=== PATIENT | female | born 1990 | race African-American/Black ===

== ENCOUNTER 2017-04-05 02:32 | Inpatient (IN) | payer MEDICAID, MEDICARE ==
[~2017-04-05] VITALS: Ht 177.8 cm; Wt 113.4 kg
[2017-04-05] VITALS: BP 106/55
[2017-04-05] MEDS ORDERED: SODIUM CHLORIDE 0.9% 1,000 ML IV ONE (06:20)
[2017-04-05] MEDS ORDERED: IPRATROPIUM/ALBUTEROL 0.5-3(2.5)MG/3ML NEB HHN ONE (06:30)
[2017-04-05 06:43] LABS: BASOPHILS % 0.8 % (0.0-2.0); EOSINOPHILS % 4.1 % (0.0-5.0); HEMATOCRIT. 35.4 % (36.0-48.0); HEMOGLOBIN. 12.3 g/dL (12.0-16.0); LYMPHOCYTES % 13.4 % (20.0-50.0); MEAN CORPUSCULAR VOLUME 86.6 fL (81.0-99.0); MEAN PLATELET VOLUME 7.2 fl (7.4-10.4); NEUTROPHILS % 74.7 % (40.0-76.0); PLATELET 221 x1000/uL (130-400); RED BLOOD CELL COUNT 4.09 mill/uL (4.2-5.4); RED CELL DISTRIBUTION WIDTH 13.1 % (11.6-14.6)
[2017-04-05 06:54] LABS: D-DIMER 1.02 mg/L FEU (<0.50); INR 0.9; PROTHROMBIN TIME 9.6 sec (9.4-11.6)
[2017-04-05 07:03] LABS: CARBON DIOXIDE 23 mEq/L (21-32); CHLORIDE 107 mEq/L (98-107); TROPONIN I < 0.02 ng/mL (0.00-0.04)
[2017-04-05] MEDS ORDERED: ENOXAPARIN 100MG/ML SYR SUBCUT ONE (08:15)
[2017-04-05 10:53] LABS: CLARITY URINE CLEAR (CLEAR); COLOR URINE YELLOW (YELLOW); GLUCOSE URINE NEGATIVE (NEGATIVE); KETONES URINE 2+ (NEGATIVE); LEUKOCYTE ESTERASE URINE NEGATIVE (NEGATIVE); NITRITE URINE NEGATIVE (NEGATIVE); OCCULT BLOOD URINE NEGATIVE (NEGATIVE); PH URINE 6.5 (4.5-8.0); PROTEIN URINE NEGATIVE (NEGATIVE); SPECIFIC GRAVITY URINE 1.017 (1.005-1.030); UROBILINOGEN URINE 0.2 E.U./dL (0.2-1.0)
[2017-04-05 11:23] LABS: *AMPHETAMINES SCREEN URINE NEGATIVE (NEGATIVE); *BARBITURATES SCREEN URINE NEGATIVE (NEGATIVE); *BENZODIAZEPINES SCREEN URINE NEGATIVE (NEGATIVE); *COCAINE SCREEN URINE NEGATIVE (NEGATIVE); CANNABINOID URINE SCREEN NEGATIVE (NEGATIVE); METHADONE URINE SCREEN NEGATIVE (NEGATIVE); OPIATES URINE SCREEN NEGATIVE (NEGATIVE); PHENCYCLIDINE URINE SCREEN NEGATIVE (NEGATIVE)
[2017-04-05] MEDS ORDERED: IPRATROPIUM/ALBUTEROL 0.5-3(2.5)MG/3ML NEB INH PRN (13:00)
[2017-04-05] MEDS ORDERED: ACETAMINOPHEN 325MG TABLET PO PRN (13:00)
[2017-04-05 15:44] VITALS: BP 101/64
[2017-04-05] MEDS ORDERED: DEXT 5%/0.45% NACL 1000ML 1,000 ML IV SCH (16:00)
[2017-04-05 20:00] VITALS: BP 151/87
[2017-04-05] MEDS ORDERED: ENOXAPARIN 120MG/0.8ML SYR SUBCUT SCH (21:00)
[2017-04-06] VITALS: BP 106/55
[2017-04-06] MEDS ORDERED: PRENATAL VIT/FE FUMARATE/FA TABLET PO SCH (09:00)
== END 2017-04-06 01:55 | disposition short-term general hospital (02) | DRG 566 ==
LOC: ER 02:32 → 5WST 08:52 → ENRESERV 13:13
PROVIDERS: ADMIT Internal Medicine; ATTEND Internal Medicine
DX: O22.33 Deep phlebothrombosis in pregnancy, third trimester (principal); I82.432 Acute embolism and thrombosis of left popliteal vein; E66.01 Morbid (severe) obesity due to excess calories; Z68.35 Body mass index [BMI] 35.0-35.9, adult; O99.213 Obesity complicating pregnancy, third trimester; Z3A.29 29 weeks gestation of pregnancy
CPT/HCPCS: 36415; 71010; 78580; 80053; 80305; 81003; 83690; 83880; 84484; 85025; 85379; 85610; 85730; 93005; 93970; 94640; 96372; 99285; J1650; J7030; J7620

== ENCOUNTER 2019-01-16 11:07 | Emergency (ER) | payer MEDICAID, MEDICARE ==
[~2019-01-16] VITALS: Ht 177.8 cm; Wt 118.0 kg
[2019-01-16] MEDS ORDERED: ACETAMINOPHEN 325MG TABLET PO ONE (11:30)
[2019-01-16 13:19] VITALS: BP 119/87
== END 2019-01-16 13:19 | disposition home or self-care (01) ==
LOC: ER 11:57
DX: O26.892 Other specified pregnancy related conditions, second trimester (principal); M25.562 Pain in left knee; Z3A.27 27 weeks gestation of pregnancy; Z86.718 Personal history of other venous thrombosis and embolism; Z79.01 Long term (current) use of anticoagulants; Z88.0 Allergy status to penicillin
CPT/HCPCS: 93971; 99284; Z7610

== ENCOUNTER 2019-01-20 23:36 | Emergency (ER) | payer MEDICARE ==
[~2019-01-20] VITALS: Ht 177.8 cm; Wt 98.0 kg
[2019-01-21] MEDS ORDERED: SODIUM CHLORIDE 0.9% 1,000 ML IV ONE (00:53)
[2019-01-21 01:23] LABS: BASOPHILS % 0.4 % (0.0-2.0); EOSINOPHILS % 3.4 % (0.0-5.0); HEMOGLOBIN. 11.9 g/dL (12.0-16.0); MEAN CORPUSCULAR HEMOGLOBIN 30.4 pg (28.0-32.0); MEAN CORPUSCULAR VOLUME 89.4 fL (81.0-99.0); MEAN PLATELET VOLUME 7.4 fl (7.4-10.4); MONOCYTES % 7.5 % (2.0-8.0); NEUTROPHILS % 71.7 % (40.0-76.0); PLATELET 202 x1000/uL (130-400); RED BLOOD CELL COUNT 3.91 mill/uL (4.2-5.4); RED CELL DISTRIBUTION WIDTH 13.5 % (11.6-14.6)
[2019-01-21 01:26] LABS: CHLORIDE 110 mEq/L (98-107)
[2019-01-21 01:32] LABS: D-DIMER 1.94 mg/L FEU (<0.50); INR 0.9; PARTIAL THROMBOPLASTIN TIME 25.8 sec (23.4-31.0); PROTHROMBIN TIME 9.6 sec (9.6-11.0)
[2019-01-21] MEDS ORDERED: ALBUTEROL (0.083%) 2.5MG/3ML NEB HHN STA (03:10)
[2019-01-21] MEDS ORDERED: IPRATROPIUM BROMIDE (0.02%) 0.5MG/2.5ML NEB HHN STA (03:10)
[2019-01-21 04:18] VITALS: BP 127/87
== END 2019-01-21 04:29 | disposition home or self-care (01) ==
LOC: ER 23:36
DX: O99.513 Diseases of the respiratory system complicating pregnancy, third trimester (principal); Z88.0 Allergy status to penicillin; Z3A.28 28 weeks gestation of pregnancy
CPT/HCPCS: 36415; 80053; 84702; 85025; 85379; 85610; 85730; 93005; 94640; 99284; J7030; J7611; Z7610

== ENCOUNTER 2019-03-05 01:27 | Emergency (ER) | payer MEDICARE ==
[~2019-03-05] VITALS: Ht 177.8 cm; Wt 126.4 kg
[2019-03-05] MEDS ORDERED: ACETAMINOPHEN 500MG TABLET PO ONE (03:45)
[2019-03-05 04:00] VITALS: BP 119/74
== END 2019-03-05 04:30 | disposition home or self-care (01) ==
LOC: ER 04:19
DX: O26.893 Other specified pregnancy related conditions, third trimester (principal); T81.49XA Infection following a procedure, other surgical site, initial encounter; Z3A.33 33 weeks gestation of pregnancy; Z98.890 Other specified postprocedural states; Z88.0 Allergy status to penicillin
CPT/HCPCS: 99283

== ENCOUNTER 2023-08-11 09:26 | Emergency (ER) | payer MEDICARE, OTHER ==
[~2023-08-11] VITALS: Ht 177.8 cm; Wt 117.9 kg
[2023-08-11 09:44] VITALS: BP 140/88; PULSE 90; RESP 16; TEMP 99; O2SAT 99
[2023-08-11 10:04] LABS: BASOPHILS % 0.8 % (0.0-2.0); EOSINOPHILS % 4.1 % (0.0-5.0); HEMATOCRIT. 40.3 % (36.0-48.0); LYMPHOCYTES % 40.9 % (20.0-50.0); MEAN CORPUSCULAR HEMOGLOBIN 27.4 pg (28.0-32.0); MEAN CORPUSCULAR HGB CONC 32.2 g/dL (31.0-37.0); MEAN CORPUSCULAR VOLUME 85.3 fL (81.0-99.0); MEAN PLATELET VOLUME 6.9 fl (7.4-10.4); MONOCYTES % 9.3 % (2.0-8.0); NEUTROPHILS % 44.9 % (40.0-76.0); PLATELET 312 x1000/uL (130-400); RED BLOOD CELL COUNT 4.72 mill/uL (4.2-5.4); RED CELL DISTRIBUTION WIDTH 14.9 % (11.6-14.6)
[2023-08-11 10:27] LABS: ALANINE AMINOTRANSFERASE 18 IU/L (10-49); ALBUMIN 4.2 g/dL (3.2-4.8); ASPARTATE AMINOTRANSFERASE 26 IU/L (<34); B-HCG QUANTITATIVE 498 mIU/mL (<3); BILIRUBIN TOTAL 0.3 mg/dL (0.1-1.0); CALCIUM 9.3 mg/dL (8.7-10.4); CARBON DIOXIDE 26 mEq/L (21-32); CHLORIDE 106 mEq/L (98-107); CREATININE 0.7 mg/dL (0.6-1.0); GLUCOSE 101 mg/dL (70-105); POTASSIUM 4.3 mEq/L (3.5-5.1); PROTEIN TOTAL 7.3 g/dL (6.0-8.3); SODIUM 136 mEq/L (136-145); UREA NITROGEN BLOOD 7 mg/dL (9-23)
[2023-08-11 13:02] LABS: CLARITY URINE CLEAR (CLEAR); COLOR URINE YELLOW (YELLOW); GLUCOSE URINE NEGATIVE (NEGATIVE); KETONES URINE NEGATIVE (NEGATIVE); LEUKOCYTE ESTERASE URINE NEGATIVE (NEGATIVE); NITRITE URINE NEGATIVE (NEGATIVE); OCCULT BLOOD URINE TRACE (NEGATIVE); PH URINE 7.5 (4.5-8.0); PROTEIN URINE NEGATIVE (NEGATIVE)
[2023-08-11 13:41] LABS: MUCUS URINE 2+ /lpf (< = 2+); SQUAMOUS EPITHELIAL CELL URINE 2+ /lpf (RARE/1+)
[2023-08-11 13:42] LABS: RBC URINE 0-2 /hpf (0-2); WBC URINE 0-2 /hpf (0-2)
[2023-08-11 13:43] LABS: BACTERIA URINE 1+
== END 2023-08-11 13:43 | disposition home or self-care (01) ==
LOC: ER 09:26
DX: O46.91 Antepartum hemorrhage, unspecified, first trimester (principal); Z3A.01 Less than 8 weeks gestation of pregnancy
CPT/HCPCS: 36415; 76801; 80053; 81003; 81025; 84702; 85025; 86850; 86900; 99284

== ENCOUNTER 2023-08-13 09:09 | Emergency (ER) | payer MEDICAID, OTHER ==
[~2023-08-13] VITALS: Ht 177.8 cm; Wt 118.0 kg
[2023-08-13 09:14] VITALS: O2SAT 98
[2023-08-13 10:18] LABS: BASOPHILS % 0.7 % (0.0-2.0); EOSINOPHILS % 2.3 % (0.0-5.0); HEMOGLOBIN. 13.7 g/dL (12.0-16.0); LYMPHOCYTES % 32.5 % (20.0-50.0); MEAN CORPUSCULAR HEMOGLOBIN 28.3 pg (28.0-32.0); MEAN CORPUSCULAR HGB CONC 33.4 g/dL (31.0-37.0); MEAN CORPUSCULAR VOLUME 84.7 fL (81.0-99.0); MONOCYTES % 7.4 % (2.0-8.0); NEUTROPHILS % 57.1 % (40.0-76.0); PLATELET 323 x1000/uL (130-400); RED BLOOD CELL COUNT 4.84 mill/uL (4.2-5.4); RED CELL DISTRIBUTION WIDTH 14.7 % (11.6-14.6)
[2023-08-13 10:33] LABS: ALANINE AMINOTRANSFERASE 24 IU/L (10-49); ALBUMIN 4.5 g/dL (3.2-4.8); ASPARTATE AMINOTRANSFERASE 34 IU/L (<34); B-HCG QUANTITATIVE 650 mIU/mL (<3); BILIRUBIN TOTAL 0.5 mg/dL (0.1-1.0); CALCIUM 9.4 mg/dL (8.7-10.4); CARBON DIOXIDE 24 mEq/L (21-32); CHLORIDE 105 mEq/L (98-107); CREATININE 0.7 mg/dL (0.6-1.0); GLUCOSE 89 mg/dL (70-105); POTASSIUM 3.8 mEq/L (3.5-5.1); SODIUM 136 mEq/L (136-145); UREA NITROGEN BLOOD 5 mg/dL (9-23)
[2023-08-13 12:23] VITALS: BP 138/86; PULSE 95; RESP 18; TEMP 98.2
== END 2023-08-13 12:24 | disposition home or self-care (01) ==
LOC: ER 09:09
DX: O46.91 Antepartum hemorrhage, unspecified, first trimester (principal); O26.891 Other specified pregnancy related conditions, first trimester; R10.2 Pelvic and perineal pain; Z3A.01 Less than 8 weeks gestation of pregnancy
CPT/HCPCS: 36415; 76830; 76856; 80053; 81025; 84702; 85025; 86850; 86900; 99284

== ENCOUNTER 2024-04-19 08:56 | Emergency (ER) | payer MEDICAID, OTHER ==
[~2024-04-19] VITALS: Ht 177.8 cm; Wt 100.0 kg
[2024-04-19 09:01] VITALS: O2SAT 100
[2024-04-19 09:35] LABS: CLARITY URINE CLEAR (CLEAR); COLOR URINE YELLOW (YELLOW); GLUCOSE URINE NEGATIVE (NEGATIVE); KETONES URINE NEGATIVE (NEGATIVE); LEUKOCYTE ESTERASE URINE TRACE (NEGATIVE); NITRITE URINE NEGATIVE (NEGATIVE); OCCULT BLOOD URINE NEGATIVE (NEGATIVE); PROTEIN URINE NEGATIVE (NEGATIVE); SPECIFIC GRAVITY URINE 1.014 (1.005-1.030); UROBILINOGEN URINE 0.2 E.U./dL (0.2-1.0)
[2024-04-19 09:50] LABS: BASOPHILS % 0.4 % (0.0-2.0); HEMATOCRIT. 39.1 % (36.0-48.0); HEMOGLOBIN. 12.9 g/dL (12.0-16.0); LYMPHOCYTES % 32.6 % (20.0-50.0); MEAN CORPUSCULAR VOLUME 84.6 fL (81.0-99.0); MEAN PLATELET VOLUME 7.1 fl (7.4-10.4); MONOCYTES % 7.7 % (2.0-8.0); NEUTROPHILS % 56.3 % (40.0-76.0); PLATELET 352 x1000/uL (130-400); RED BLOOD CELL COUNT 4.62 mill/uL (4.2-5.4); RED CELL DISTRIBUTION WIDTH 16.2 % (11.6-14.6); WHITE BLOOD COUNT 6.7 x1000/uL (4.5-11.0)
[2024-04-19 09:54] LABS: CHLORIDE 107 mEq/L (98-107); POTASSIUM 3.9 mEq/L (3.5-5.1); SODIUM 133 mEq/L (136-145)
[2024-04-19 09:55] LABS: CALCIUM 9.4 mg/dL (8.7-10.4); CARBON DIOXIDE 22 mEq/L (21-32)
[2024-04-19 10:00] LABS: CREATININE 0.7 mg/dL (0.6-1.0); GLUCOSE 111 mg/dL (70-105); UREA NITROGEN BLOOD 7 mg/dL (9-23)
[2024-04-19 10:09] LABS: SQUAMOUS EPITHELIAL CELL URINE 2+ /lpf (RARE/1+)
[2024-04-19 10:10] LABS: BACTERIA URINE 2+; RBC URINE 0-2 /hpf (0-2)
[2024-04-19 10:14] LABS: B-HCG QUANTITATIVE 2730 mIU/mL (<3)
[2024-04-19 11:17] VITALS: BP 121/79; PULSE 92; RESP 18; TEMP 36.78072; O2SAT 100
== END 2024-04-19 12:41 | disposition home or self-care (01) ==
LOC: ER 08:56
DX: O20.9 Hemorrhage in early pregnancy, unspecified (principal); Z98.890 Other specified postprocedural states; Z88.0 Allergy status to penicillin; Z3A.01 Less than 8 weeks gestation of pregnancy
CPT/HCPCS: 36415; 76801; 80048; 81003; 81025; 84702; 85025; 86850; 86900; 99284

== ENCOUNTER 2024-04-26 10:30 | Emergency (ER) | payer OTHER ==
[~2024-04-26] VITALS: Ht 177.8 cm; Wt 113.0 kg
[2024-04-26 10:39] VITALS: O2SAT 100
[2024-04-26 11:10] LABS: BASOPHILS % 0.6 % (0.0-2.0); EOSINOPHILS % 2.9 % (0.0-5.0); HEMATOCRIT. 38.4 % (36.0-48.0); HEMOGLOBIN. 12.8 g/dL (12.0-16.0); LYMPHOCYTES % 33.9 % (20.0-50.0); MEAN CORPUSCULAR HGB CONC 33.2 g/dL (31.0-37.0); MEAN CORPUSCULAR VOLUME 84.4 fL (81.0-99.0); MEAN PLATELET VOLUME 6.9 fl (7.4-10.4); MONOCYTES % 6.1 % (2.0-8.0); NEUTROPHILS % 56.5 % (40.0-76.0); PLATELET 339 x1000/uL (130-400); RED BLOOD CELL COUNT 4.55 mill/uL (4.2-5.4); RED CELL DISTRIBUTION WIDTH 16.4 % (11.6-14.6); WHITE BLOOD COUNT 7.2 x1000/uL (4.5-11.0)
[2024-04-26 11:23] LABS: CHLORIDE 107 mEq/L (98-107); POTASSIUM 3.7 mEq/L (3.5-5.1); SODIUM 136 mEq/L (136-145)
[2024-04-26 11:24] LABS: CARBON DIOXIDE 23 mEq/L (21-32)
[2024-04-26 11:25] LABS: CALCIUM 9.3 mg/dL (8.7-10.4)
[2024-04-26 11:29] LABS: CREATININE 0.7 mg/dL (0.6-1.0); GLUCOSE 122 mg/dL (70-105); UREA NITROGEN BLOOD 8 mg/dL (9-23)
[2024-04-26 11:47] LABS: B-HCG QUANTITATIVE 16551 mIU/mL (<3)
[2024-04-26 13:53] LABS: CLARITY URINE TURBID (CLEAR); COLOR URINE YELLOW (YELLOW); GLUCOSE URINE NEGATIVE (NEGATIVE); KETONES URINE NEGATIVE (NEGATIVE); LEUKOCYTE ESTERASE URINE NEGATIVE (NEGATIVE); NITRITE URINE NEGATIVE (NEGATIVE); OCCULT BLOOD URINE NEGATIVE (NEGATIVE); PROTEIN URINE NEGATIVE (NEGATIVE); SPECIFIC GRAVITY URINE 1.022 (1.005-1.030); UROBILINOGEN URINE 0.2 E.U./dL (0.2-1.0)
[2024-04-26 14:02] VITALS: BP 125/87; PULSE 81; RESP 16; TEMP 36.66960; O2SAT 100
[2024-04-26 14:51] LABS: BACTERIA URINE TRACE; SQUAMOUS EPITHELIAL CELL URINE RARE /lpf (RARE/1+)
[2024-04-26 14:52] LABS: AMORPHOUS SEDIMENT URINE 3+ /lpf; RBC URINE NONE SEEN /hpf (0-2); WBC URINE NONE SEEN /hpf (0-2)
== END 2024-04-26 14:09 | disposition home or self-care (01) ==
LOC: ER 10:30
DX: O46.91 Antepartum hemorrhage, unspecified, first trimester (principal); O26.891 Other specified pregnancy related conditions, first trimester; Z98.890 Other specified postprocedural states; Z90.49 Acquired absence of other specified parts of digestive tract; Z88.0 Allergy status to penicillin; Z3A.01 Less than 8 weeks gestation of pregnancy
CPT/HCPCS: 36415; 76801; 80048; 81003; 84702; 85025; 86850; 86900; 99284

== ENCOUNTER 2024-09-04 00:32 | Emergency (ER) | payer MEDICAID, OTHER ==
[~2024-09-04] VITALS: Ht 177.8 cm; Wt 86.0 kg
[2024-09-04 02:33] LABS: BASOPHILS % 0.5 % (0.0-2.0); HEMATOCRIT. 33.3 % (36.0-48.0); HEMOGLOBIN. 11.5 g/dL (12.0-16.0); LYMPHOCYTES % 25.2 % (20.0-50.0); MEAN CORPUSCULAR HGB CONC 34.4 g/dL (31.0-37.0); MEAN CORPUSCULAR VOLUME 87.3 fL (81.0-99.0); MEAN PLATELET VOLUME 7.1 fl (7.4-10.4); MONOCYTES % 7.3 % (2.0-8.0); PLATELET 211 x1000/uL (130-400); RED BLOOD CELL COUNT 3.81 mill/uL (4.2-5.4); RED CELL DISTRIBUTION WIDTH 13.8 % (11.6-14.6); WHITE BLOOD COUNT 7.3 x1000/uL (4.5-11.0)
[2024-09-04 03:00] VITALS: PULSE 68; RESP 20; O2SAT 96
[2024-09-04] MEDS: ALBUTEROL (0.083%) 2.5MG/3ML NEB HHN ONE (03:00)
[2024-09-04 03:12] LABS: CHLORIDE 109 mEq/L (98-107); POTASSIUM 3.7 mEq/L (3.5-5.1); SODIUM 140 mEq/L (136-145)
[2024-09-04] MEDS: ACETAMINOPHEN 325MG TABLET PO ONE (03:12)
[2024-09-04] MEDS: DEXAMETHASONE 10 MG/ML VIAL PO ONE (03:12)
[2024-09-04 03:13] LABS: CALCIUM 8.9 mg/dL (8.7-10.4); CARBON DIOXIDE 22 mEq/L (21-32)
[2024-09-04 03:14] LABS: CLARITY URINE CLEAR (CLEAR); COLOR URINE YELLOW (YELLOW); GLUCOSE URINE NEGATIVE (NEGATIVE); KETONES URINE NEGATIVE (NEGATIVE); LEUKOCYTE ESTERASE URINE NEGATIVE (NEGATIVE); NITRITE URINE NEGATIVE (NEGATIVE); OCCULT BLOOD URINE NEGATIVE (NEGATIVE); PROTEIN URINE NEGATIVE (NEGATIVE); SPECIFIC GRAVITY URINE 1.026 (1.005-1.030)
[2024-09-04 03:18] LABS: CREATININE 0.6 mg/dL (0.6-1.0); GLUCOSE 124 mg/dL (70-105); UREA NITROGEN BLOOD 7 mg/dL (9-23)
[2024-09-04 03:38] LABS: TROPONIN I HIGH SENSITIVITY < 4 ng/L (3.0-34)
[2024-09-04 03:59] LABS: INFLUENZA TYPE A Presumptive Negative (Pres. Neg.); INFLUENZA TYPE B Presumptive Negative (Pres. Neg.)
[2024-09-04 05:08] LABS: HCG SCREEN POSITIVE
[2024-09-04 05:27] LABS: TROPONIN I HIGH SENSITIVITY < 4 ng/L (3.0-34)
[2024-09-04 07:29] VITALS: BP 148/83; PULSE 68; RESP 20; TEMP 36.7; O2SAT 96
[2024-09-04] MEDS ORDERED: BECL10.6 INH (08:19)
== END 2024-09-04 08:48 | disposition home or self-care (01) ==
LOC: ER 00:32
DX: R06.02 Shortness of breath (principal); Z88.0 Allergy status to penicillin; Z90.49 Acquired absence of other specified parts of digestive tract; Z20.822 Contact with and (suspected) exposure to COVID-19; Z79.899 Other long term (current) drug therapy
CPT/HCPCS: 80048; 81003; 84703; 84702; 85025; 85379; 84484; 87804 ×2; 36415; 71045; 71275; 94640; 93005; 99285; 87426; Z7610 ×4; 94070; J1100

== ENCOUNTER 2025-05-18 08:52 | Emergency (ER) | payer OTHER ==
[~2025-05-18] VITALS: Ht 177.8 cm; Wt 104.0 kg
[~2025-05-18 08:52] MED LIST: BECL10.6 INH
[2025-05-18 08:56] VITALS: O2SAT 98
[2025-05-18 11:15] VITALS: BP 120/80; PULSE 89; RESP 15; TEMP 37.1; O2SAT 98
== END 2025-05-18 11:16 | disposition home or self-care (01) ==
LOC: ER 08:52
DX: S83.92XA Sprain of unspecified site of left knee, initial encounter (principal); F41.9 Anxiety disorder, unspecified; Z88.0 Allergy status to penicillin; X58.XXXA Exposure to other specified factors, initial encounter; Y93.89 Activity, other specified; Y92.89 Other specified places as the place of occurrence of the external cause; Y99.8 Other external cause status
CPT/HCPCS: 73562; 93971; 99284

== ENCOUNTER 2025-05-21 20:06 | Emergency (ER) | payer OTHER ==
[~2025-05-21] VITALS: Ht 177.8 cm; Wt 123.0 kg
[2025-05-21 20:10] VITALS: O2SAT 99
[2025-05-21 21:14] LABS: BASOPHILS % 0.5 % (0.0-2.0); EOSINOPHILS % 6.0 % (0.0-5.0); HEMATOCRIT. 40.5 % (36.0-48.0); HEMOGLOBIN. 13.7 g/dL (12.0-16.0); LYMPHOCYTES % 39.3 % (20.0-50.0); MEAN PLATELET VOLUME 7.2 fl (7.4-10.4); MONOCYTES % 6.5 % (2.0-8.0); NEUTROPHILS % 47.7 % (40.0-76.0); PLATELET 285 x1000/uL (130-400); RED BLOOD CELL COUNT 4.55 mill/uL (4.2-5.4); RED CELL DISTRIBUTION WIDTH 13.4 % (11.6-14.6)
[2025-05-21 21:25] LABS: HCG SCREEN NEGATIVE
[2025-05-21 21:28] LABS: CREATININE 0.8 mg/dL (0.6-1.0); UREA NITROGEN BLOOD 7 mg/dL (9-23)
[2025-05-21 21:30] LABS: TROPONIN I HIGH SENSITIVITY < 4 ng/L (3.0-34)
[2025-05-21] MEDS ORDERED: BECL10.6 INH (22:22)
[2025-05-21] MEDS ORDERED: ALBU18HF2 IH (22:22)
[2025-05-21] MEDS ORDERED: P50 MT (22:22)
[2025-05-21] MEDS ORDERED: ENOX40SY27 SQ (22:22)
[2025-05-22 00:05] VITALS: BP 127/90; PULSE 88; RESP 16; TEMP 36.8; O2SAT 100
[2025-05-22] MEDS: IOHEXOL-350 100 ML BOTTLE ONE (00:11)
[2025-05-22 00:48] LABS: INFLUENZA TYPE A Presumptive Negative (Pres. Neg.)
[2025-05-22 00:49] LABS: INFLUENZA TYPE B Presumptive Negative (Pres. Neg.)
[2025-05-22 00:50] LABS: RESPIRATORY SYNCYTIAL VIRUS Not Detected (Not Detectd)
== END 2025-05-22 00:11 | disposition home or self-care (01) ==
LOC: ER 20:06
DX: J20.8 Acute bronchitis due to other specified organisms (principal); I49.3 Ventricular premature depolarization; I50.9 Heart failure, unspecified; Z79.51 Long term (current) use of inhaled steroids; Z86.711 Personal history of pulmonary embolism; Z88.0 Allergy status to penicillin
CPT/HCPCS: 99285; 71275; 71045; 87426; 80048; 84703; 83880; 85025; 85379; 87420; 84484; 87804 ×2; 36415; 93005; Q9967

== ENCOUNTER 2025-06-25 17:07 | Emergency (ER) | payer OTHER ==
[~2025-06-25] VITALS: Ht 177.8 cm; Wt 123.0 kg
[~2025-06-25 17:07] MED LIST changes: +ALBU18HF2 IH; +ENOX40SY27 SQ; +P50 MT
[2025-06-25 17:09] VITALS: O2SAT 99
[2025-06-25 17:29] VITALS: BP 132/82; PULSE 86; RESP 16; TEMP 36.7; O2SAT 98
[2025-06-25 18:12] LABS: CLARITY URINE TURBID (CLEAR); COLOR URINE YELLOW (YELLOW); GLUCOSE URINE NEGATIVE (NEGATIVE); KETONES URINE TRACE (NEGATIVE); LEUKOCYTE ESTERASE URINE 3+ (NEGATIVE); NITRITE URINE NEGATIVE (NEGATIVE); OCCULT BLOOD URINE 1+ (NEGATIVE); PH URINE 6.5 (4.5-8.0); PROTEIN URINE 1+ (NEGATIVE); SPECIFIC GRAVITY URINE 1.029 (1.005-1.030); UROBILINOGEN URINE 0.2 E.U./dL (0.2-1.0)
[2025-06-25 18:20] LABS: SQUAMOUS EPITHELIAL CELL URINE 1+ /lpf (RARE/1+); WBC URINE 15-25 /hpf (0-2)
[2025-06-25 18:21] LABS: BACTERIA URINE 3+
== END 2025-06-25 22:06 | disposition left against medical advice (07) ==
LOC: ER 17:07
DX: R30.0 Dysuria (principal); Z88.0 Allergy status to penicillin
CPT/HCPCS: 81003; 81025; 99283

== ENCOUNTER 2025-06-29 19:59 | Emergency (ER) | payer OTHER ==
[~2025-06-29] VITALS: Ht 177.8 cm; Wt 121.3 kg
[2025-06-29 20:03] VITALS: O2SAT 99
[2025-06-29 20:42] LABS: CLARITY URINE TURBID (CLEAR); COLOR URINE YELLOW (YELLOW); GLUCOSE URINE NEGATIVE (NEGATIVE); KETONES URINE NEGATIVE (NEGATIVE); LEUKOCYTE ESTERASE URINE 3+ (NEGATIVE); NITRITE URINE NEGATIVE (NEGATIVE); OCCULT BLOOD URINE 1+ (NEGATIVE); PH URINE 6.5 (4.5-8.0); PROTEIN URINE 1+ (NEGATIVE); SPECIFIC GRAVITY URINE 1.024 (1.005-1.030); UROBILINOGEN URINE 1.0 E.U./dL (0.2-1.0)
[2025-06-29 21:34] LABS: BACTERIA URINE 1+; RBC URINE 0-2 /hpf (0-2); SQUAMOUS EPITHELIAL CELL URINE 3+ /lpf (RARE/1+); WBC URINE 50-100 /hpf (0-2)
[2025-06-29 21:35] LABS: MUCUS URINE 1+ /lpf (< = 2+); TRICHOMONAS URINE 1+
[2025-06-29] MEDS ORDERED: METR-167 MT (22:17)
[2025-06-29] MEDS ORDERED: PHEN-815 MT (22:25)
[2025-06-29] MEDS ORDERED: NITR100C MT (22:25)
[2025-06-29 22:52] VITALS: BP 142/96; PULSE 85; RESP 15; TEMP 36.7; O2SAT 99
== END 2025-06-29 22:55 | disposition home or self-care (01) ==
LOC: ER 19:59
DX: N89.8 Other specified noninflammatory disorders of vagina (principal); Z79.51 Long term (current) use of inhaled steroids; Z88.0 Allergy status to penicillin
CPT/HCPCS: 81003; 81025; 87210; 99283